=== PATIENT | female | born 1995 | race American Indian/Alaskan Native ===

== ENCOUNTER 2024-07-06 12:50 | Emergency (ER) | payer SELFPAY ==
[2024-07-06] MEDS: Ketorolac 30 MG/ML SDV IVPUSH ONE (13:21)
[2024-07-06] MEDS: Sodium Chloride 0.9% 1,000 ML IV ONE (13:21)
[2024-07-06] MEDS: Ondansetron 4 MG/2 ML SDV IVPUSH ONE (13:21)
[2024-07-06 13:34] LABS: BASOPHILS ABSOLUTE AUTO 0.02 K/uL (0.00-0.20); BASOPHILS PERCENT AUTO 0.2 % (0.0-1.0); EOSINOPHILS ABSOLUTE AUTO 0.03 K/uL (0.00-0.45); EOSINOPHILS PERCENT AUTO 0.4 % (0.0-6.0); HEMATOCRIT 41.9 % (37.0-47.0); HEMOGLOBIN 14.2 g/dL (12.0-16.0); IMMATURE GRAN ABSOLUTE AUTO 0.01 K/uL (0.00-0.05); IMMATURE GRAN PERCENT AUTO 0.1 % (0.0-0.4); LYMPHOCYTES ABSOLUTE AUTO 1.78 K/uL (1.00-4.80); LYMPHOCYTES PERCENT AUTO 21.1 % (24.0-44.0); MEAN CORPUSCULAR HEMOGLOBIN 30.9 pg (28.0-32.0); MEAN CORPUSCULAR HGB CONC 33.9 g/dL (32.0-36.0); MEAN CORPUSCULAR VOLUME 91.3 fL (83.0-99.0); MEAN PLATELET VOLUME 8.6 fL (9.4-12.3); MONOCYTES ABSOLUTE AUTO 0.57 K/uL (0.00-0.80); MONOCYTES PERCENT AUTO 6.8 % (0.0-8.0); NEUTROPHILS ABSOLUTE AUTO 6.02 K/uL (1.80-7.70); NEUTROPHILS PERCENT AUTO 71.4 % (41.0-71.0); PLATELET COUNT,PLT 198 K/uL (150-400); RED BLOOD CELL COUNT 4.59 M/uL (4.10-5.30); WHITE BLOOD CELL COUNT,WBC 8.43 K/uL (3.9-11.3)
[2024-07-06 13:54] LABS: ALBUMIN 3.8 g/dL (3.4-5.0); BILIRUBIN TOTAL 0.4 mg/dL (0.2-1.0); EST CRCL DRUG DOSING (CG) 79.11 mL/min; POTASSIUM,K 3.5 mmol/L (3.5-5.1); PROTEIN TOTAL,TP 7.7 g/dL (6.4-8.2)
[2024-07-06 14:52] LABS: GLUCOSE,URINE NEGATIVE (NEGATIVE); KETONES,URINE TRACE mg/dL (NEGATIVE); LEUKOCYTE ESTERASE,URINE NEGATIVE (NEGATIVE); NITRITE,URINE NEGATIVE (NEGATIVE); OCCULT BLOOD,URINE LARGE (NEGATIVE); PROTEIN,URINE 100 mg/dL (NEGATIVE)
[2024-07-06 14:56] LABS: APPEARANCE,URINE BLOODY; BILIRUBIN,URINE SMALL (NEGATIVE); COLOR,URINE RED
[2024-07-06 14:57] LABS: BACTERIA,URINE FEW (NEGATIVE); EPITHELIAL CELLS,URINE FEW (NONE-FEW); RBC,URINE TOO NUMEROUS TO CT (0-2/HPF)
[2024-07-06] MEDS: Iopamidol 755 MG/ML 500 ML Multipack Bottle IVPUSH STA (15:04)
[2024-07-06 16:23] VITALS: BP 137/98; PULSE 89
== END 2024-07-06 16:21 | disposition home or self-care (01) ==
LOC: MW.ED 12:50
DX: R10.31 Right lower quadrant pain (principal); R10.11 Right upper quadrant pain; Z79.899 Other long term (current) drug therapy; Z75.8 Other problems related to medical facilities and other health care
CPT/HCPCS: 36415; 74177; 80053; 81001; 81025; 85025; 96361; 96374; 96375; 99284; J1885; J2405; J7030; Q9967

== ENCOUNTER 2024-09-16 08:33 | Day surgery (SDC) | payer OTHER ==
[~2024-09-16 08:33] MED LIST: Albuterol 0.083% 2.5 MG/3 ML Neb Soln NEB PRN; HYDROmorphone 1 MG/ML Syringe IVPUSH PRN; Metoclopramide 10 MG/2 ML SDV IVPUSH PRN; Morphine 2 MG/ML SYRINGE IVPUSH PRN; Naloxone 0.4 MG/ML SDV IVPUSH PRN; Ondansetron 4 MG/2 ML SDV IVPUSH PRN; Phenylephrine HCl In 0.9% NaCl 1 MG/10 ML Syringe IVPUSH PRN; Sodium Chloride 0.9% 10 ML Syringe FLUSH PRN; Sodium Chloride 0.9% 2.5 ML Syringe FLUSH PRN; Sodium Chloride 0.9% 20 ML SDV IV PRN; ceFAZolin 2 GM in Water For Injection, Sterile 20 ML IVPUSH ONE; fentaNYL 50 MCG/ML SDV IVPUSH PRN
[2024-09-16] MEDS ORDERED: fentaNYL 100 MCG/2 ML SDV ONE ×3 (08:43→10:54)
[2024-09-16] MEDS ORDERED: Propofol 200 MG/20 ML SDV ONE (08:43)
[2024-09-16] MEDS ORDERED: Lidocaine 2% 5 ML SDV ONE (08:44)
[2024-09-16] MEDS ORDERED: propofoL 500 MG/50 ML 50 ML ONE ×2 (08:45→10:24)
[2024-09-16] MEDS ORDERED: Ropivacaine 0.5% 5 MG/ML 30 ML SDV ONE (08:48)
[2024-09-16] MEDS ORDERED: Lidocaine 2% 11 ML Jelly Filled Syringe ONE (09:16)
[2024-09-16] MEDS: Scopalamine 1mg/3day Transdermal Patch TRDERM PRN (09:19)
[2024-09-16] MEDS: Lactated Ringers 1,000 ML IV SCH (09:19)
[2024-09-16] MEDS ORDERED: Bupivacaine 0.5% 30 ML SDV ONE (10:02)
[2024-09-16] MEDS ORDERED: Ketamine HCL/NACL, ISO-OSM 50 MG/5 ML Syringe ONE (10:10)
[2024-09-16] MEDS ORDERED: ceFAZolin 2 GM Vial ONE (10:10)
[2024-09-16] MEDS ORDERED: fentaNYL 250 MCG/5 ML SDV ONE (10:14)
[2024-09-16] MEDS ORDERED: Sugammadex Sodium 200 MG/2 ML VIAL IV ONE (11:00)
[2024-09-16] MEDS ORDERED: Ondansetron 4 MG/2 ML SDV ONE (11:00)
[2024-09-16] MEDS ORDERED: Ketorolac 30 MG/ML SDV ONE (11:00)
[2024-09-16] MEDS ORDERED: Dexamethasone 4 MG/ML 5 ML MDV ONE (11:00)
[2024-09-16] MEDS ORDERED: dexmedeTOMIDine HCl 200 MCG/2 ML SDV ONE (12:54)
[2024-09-16] MEDS ORDERED: Rocuronium Bromide 50 MG/5 ML Syringe ONE (12:54)
[2024-09-16 13:28] VITALS: BP 130/91; PULSE 85
== END 2024-09-16 13:40 | disposition home or self-care (01) ==
LOC: MW.SDS 08:33
PROVIDERS: ATTEND Surgery
DX: K80.10 Calculus of gallbladder with chronic cholecystitis without obstruction (principal); K82.8 Other specified diseases of gallbladder; E66.01 Morbid (severe) obesity due to excess calories; Z68.41 Body mass index [BMI] 40.0-44.9, adult; Z88.8 Allergy status to other drugs, medicaments and biological substances; Z79.899 Other long term (current) drug therapy
CPT/HCPCS: 47562; 64488; 81025; A9270; J0665; J0690; J1100; J1885; J2003; J2405; J2704; J2795; J3010; J7120; 00790; J3490